=== PATIENT | female | born 1950 | race Two or more races ===

== ENCOUNTER → 2017-05-08 | Outpatient (CLI) | payer BC ==
--- NOTE | 2017-05-08 12:35 | KCIC ---
CHEST PA LATERAL History: Hypercalcemia. Comparison: None. Findings: Tortuous thoracic aorta. Cardiac size normal. Pulmonary vasculature is normal. The lungs are clear. No pleural effusion or pneumothorax is seen. There is no acute bone abnormality. There is degenerative endplate spurring in the thoracic spine. IMPRESSION: No acute cardiopulmonary process. Electronically signed by: Eduar Walden MD (05/08/2017 12:31 PM) [id number]
== END | disposition home or self-care (01) ==
LOC: KCIC 11:56
PROVIDERS: ATTEND Nurse Practitioner Family
DX: E83.52 Hypercalcemia (principal)
CPT/HCPCS: 71020